=== PATIENT | female | born 1985 | race Caucasian/White ===

== ENCOUNTER 2016-12-20 20:32 | Emergency (ER) | payer OTHER ==
[2016-12-20 20:44] VITALS: BP 103/64; BMI 29.4
--- NOTE | 2016-12-20 20:53 | DR.GENAD ---
HPI - PCP Primary Care Physician: angeli - HPI Comment HPI Comment: HISTORY BELOW. - Complaint/Symptoms Chief Complaint Doctors Comments: DYSURIA AND NAUSEA FOR FEW DAYS. TOOK LEFT OVER CIPRO. DYSURAI BACK TODAY, NO FEVER. Chief Complaint:: pain on urination, weak nauseated Self Treatment fo Chief Complaint: pt took tylenol approx one hour ago - Nurses notes reviewed Nurses Notes Review: Yes - Source History Provided: Patient - Mode of Arrival Mode of Arrival: Ambulatory - Timing Onset of Chief Complaint: 12/13/16 PMH - PMH Past Medical History: No Past Medical History: Anxiety Past Surgical History: Yes Surgical History: , Ortho Surgery - Family History History of Family Medical Conditions: Yes Family Medical History: Hypertension - Social History Does patient currently use any type of tobacco product: No Have you used tobacco products in the last 12 months: No Type of Tobacco Use: Cigarettes Does any household member use tobacco: No Alcohol Use: Occasionally Do you use any recreational Drugs:: No Lives With: Family Lives Where: Home - infectious screening In the last 2 months have you had wt loss of >10#?: NO Have you had fever, night sweats or hemotysis?: No Have you traveled outside the country in the last 6 months?: No Isolation: Standard ROS - Review of Systems Constitutional: No Symptoms Reported Eyes: No Symptoms Reported ENTM: No Symptoms Reported Respiratoy: No Symptoms Reported Cardiovascular: No Symptoms Reported Gastrointestinal/Abdominal: Nausea Genitourinary: Dysuria Neurological: No Symptoms Reported Musculoskeletal: No Symptoms Reported Integumentary: No Symptoms Reported Hematologic/Lymphatic: No Symptoms Reported Endocrine: No Symptoms Reported All Other Systems: Reviewed and Negative PE - Vital Signs Vitals: Temperature 98.0 F Pulse Rate 71 Respiratory Rate 18 Blood Pressure [Left Arm] 110/67 Blood Pressure 103/64 O2 Sat by Pulse Oximetry 98 - General Limitations: No Limitations General Appearance: Alert - Head Head Exam: Normal Inspection - Eyes Eye exam: Normal Appearance - ENT ENT Exam: Normal External Ear Exam External Ear Exam: Normal External Inspection TM/Canal Exam: Bilateral Normal Nose Exam: Normal Nose Exam Mouth Exam: Normal Inspection Throat Exam: Normal Inspection - Neck Neck Exam: Normal Inspection - Chest Chest Inspection: Symmetric Chest Wall Rise - Respiratory Respiratory Exam: Prolonged Expiratory Phase Respiratory Exam: Bilateral Clear to Auscultation - Cardiovascular Cardiovascular Exam: Regular Rate, Normal Rhythm, Normal Heart Sounds - Abdominal Exam Abdominal Exam: Normal Bowel Sounds, Soft. negative: Tenderness - Extremities Extremities Exam: Normal Inspection - Back Back Exam: negative: (R) CVA Tenderness, (L) CVA Tenderness - Neurologic Neurological Exam: Alert, Oriented X3 - Psychiatric Psychiatric Exam: Normal Affect, Normal Mood - Skin Skin Exam: Normal Color MDM - Differential Diagnosis Differential Diagnosis: UTI, KIDNEY STONE, PYELONEPHRITIS Course - Treatment Treatment: SEE ORDERS. - Education/Counseling Education/Counseling: Patient, Education Educated On: Diagnosis, Needs for Follow Up ROR - Labs Reviewed Laboratory Results Reviewed?: Yes Result Diagrams: 12/20/16 21:15 12/20/16 21:15 Laboratory: WBC 10.6 X10^3/uL (3.6-10.0) H 12/20/16 21:15 RBC 4.72 X10^6/uL (3.5-5.4) 12/20/16 21:15 Hgb 13.1 g/dL (12.0-16.0) 12/20/16 21:15 Hct 39.1 % (36.0-47.0) 12/20/16 21:15 MCV 82.9 fL (80.0-100.0) 12/20/16 21:15 MCH 27.7 pg (27.0-34.0) 12/20/16 21:15 MCHC 33.5 g/dL (33.0-35.0) 12/20/16 21:15 RDW 14.0 % (11.6-16.5) 12/20/16 21:15 Plt Count 274 X10^3/uL (150.0-450.0) 12/20/16 21:15 MPV 10.3 fL (7.4-11.0) 12/20/16 21:15 Neut % 55.2 % (42.0-75.0) 12/20/16 21:15 Lymph % 34.0 % (21.0-51.0) 12/20/16 21:15 [place] % 7.7 % (0.0-13.0) 12/20/16 21:15 Eos % 1.9 % (0.9-2.9) 12/20/16 21:15 Baso % 1.2 % (0.2-1.0) H 12/20/16 21:15 Neut # 5.9 x10^3/uL (2.2-4.8) H 12/20/16 21:15 Lymph # 3.6 X10^3/uL (1.3-2.9) H 12/20/16 21:15 [place] # 0.8 x10^3/uL (0.3-0.8) 12/20/16 21:15 Eos # 0.2 x10^3/uL (0.0-0.2) 12/20/16 21:15 Baso # 0.1 X10^3/uL (0.0-0.1) 12/20/16 21:15 Absolute Nucleated RBC 0.0 /100WBC 12/20/16 21:15 Sodium 141 mmol/L (136-145) 12/20/16 21:15 Corrected Sodium TNP 12/20/16 21:15 Potassium 4.1 mmol/L (3.5-5.1) 12/20/16 21:15 Chloride 107 mmol/L (98-107) 12/20/16 21:15 Carbon Dioxide 25.4 mmol/L (21-32) 12/20/16 21:15 BUN 16 mg/dL (7-18) 12/20/16 21:15 Creatinine 1.11 mg/dL (0.55-1.02) H 12/20/16 21:15 Est GFR (MDRD) Af Amer > 60 (>60) 12/20/16 21:15 Est GFR (MDRD) Non-Af > 60 (>60) 12/20/16 21:15 Glucose 83 mg/dL (65-99) 12/20/16 21:15 Calcium 9.4 mg/dL (8.5-10.1) 12/20/16 21:15 Corrected Calcium TNP 12/20/16 21:15 Total Bilirubin 0.30 mg/dL (0.2-1.0) 12/20/16 21:15 AST 14 Units/L (15-37) L 12/20/16 21:15 ALT 22 Units/L (12-78) 12/20/16 21:15 Alkaline Phosphatase 55 Units/L (46-116) 12/20/16 21:15 Total Protein 7.1 g/dL (6.4-8.2) 12/20/16 21:15 Albumin 3.7 g/dL (3.4-5.0) 12/20/16 21:15 Globulin 3.4 g/dL (2.5-4.5) 12/20/16 21:15 Albumin/Globulin Ratio 1.1 Ratio (1.1-2.1) 12/20/16 21:15 HCG, Qual Negative <10 mIU/mL 12/20/16 21:15 Specimen Type Clean catch urine 12/20/16 21:39 Urine Color Yellow (YELLOW) 12/20/16 21:39 Urine Appearance Clear (CLEAR) 12/20/16 21:39 Urine pH 5.0 (5.0 - 8.0) 12/20/16 21:39 Ur Specific [place] 1.030 (1.000-1.030) 12/20/16 21:39 Urine Protein 1+ (NEGATIVE) 12/20/16 21:39 Urine Glucose (UA) Negative (NEGATIVE) 12/20/16 21:39 Urine Ketones Negative (NEGATIVE) 12/20/16 21:39 Urine Occult Blood 1+ (NEGATIVE) 12/20/16 21:39 Urine Nitrite Negative (NEGATIVE) 12/20/16 21:39 Urine Bilirubin Negative (NEGATIVE) 12/20/16 21:39 Urine Urobilinogen Normal (NORMAL) 12/20/16 21:39 Ur Leukocyte Esterase Negative (NEGATIVE) 12/20/16 21:39 Urine RBC 0-3 /HPF (NEGATIVE) 12/20/16 21:39 Urine WBC 2-4 /HPF (NEGATIVE) 12/20/16 21:39 Ur Squamous Epith Cells Few /HPF (NEGATIVE) 12/20/16 21:39 Urine Bacteria 1+ /HPF (NEGATIVE) 12/20/16 21:39 Urine Mucus Few /HPF (NEGATIVE) 12/20/16 21:39 Ur Culture Indicated? No/not indicated 12/20/16 21:39 - Diagnosis Discharge Problem: UTI (urinary tract infection) - Discharge Plan Disposition: 01 HOME, SELF-CARE Condition: Stable Prescriptions: Phenazopyridine HCl [Pyridium] 200 mg PO TID PRN #12 tab PRN Reason: PAINFUL URINATION Sulfamethoxazole-Trimethoprim [BACTRIM DS TAB 800/160 MG *] 1 tab PO BID #20 tab - Follow ups/Referrals Follow ups/Referrals: LAKIA PRIDE [Primary Care Provider] - 3 days - Instructions Instructions: Urinary Tract Infection, Adult, [id number] Additional Instructions: RETURN TO ED IF WORSE.
[2016-12-20 21:27] LABS: BASOPHILS # (AUTO) 0.1 X10^3/uL (0.0-0.1); BASOPHILS % (AUTO) 1.2 % (0.2-1.0); EOSINOPHILS # (AUTO) 0.2 x10^3/uL (0.0-0.2); EOSINOPHILS % (AUTO) 1.9 % (0.9-2.9); HEMATOCRIT 39.1 % (36.0-47.0); HEMOGLOBIN 13.1 g/dL (12.0-16.0); LYMPHOCYTES # (AUTO) 3.6 X10^3/uL (1.3-2.9); MEAN CORPUSCULAR HEMOGLOBIN 27.7 pg (27.0-34.0); MEAN CORPUSCULAR HGB CONC 33.5 g/dL (33.0-35.0); MEAN CORPUSCULAR VOLUME 82.9 fL (80.0-100.0); MEAN PLATELET VOLUME 10.3 fL (7.4-11.0); MONOCYTES # (AUTO) 0.8 x10^3/uL (0.3-0.8); MONOCYTES % (AUTO) 7.7 % (0.0-13.0); NEUTROPHILS # (AUTO) 5.9 x10^3/uL (2.2-4.8); NEUTROPHILS % (AUTO) 55.2 % (42.0-75.0); PLATELET COUNT 274 X10^3/uL (150.0-450.0); RED BLOOD COUNT 4.72 X10^6/uL (3.5-5.4); WHITE BLOOD COUNT 10.6 X10^3/uL (3.6-10.0)
[2016-12-20 21:39] LABS: ALANINE AMINOTRANSFERASE 22 Units/L (12-78); ALBUMIN 3.7 g/dL (3.4-5.0); ALKALINE PHOSPHATASE 55 Units/L (46-116); ASPARTATE AMINO TRANSFERASE 14 Units/L (15-37); BLOOD UREA NITROGEN 16 mg/dL (7-18); CALCIUM 9.4 mg/dL (8.5-10.1); CARBON DIOXIDE 25.4 mmol/L (21-32); CHLORIDE 107 mmol/L (98-107); CREATININE 1.11 mg/dL (0.55-1.02); SODIUM 141 mmol/L (136-145); TOTAL PROTEIN 7.1 g/dL (6.4-8.2); eGFR BLACK RACES > 60 (>60); eGFR NON BLACK RACES > 60 (>60)
[2016-12-20 21:55] LABS: BILIRUBIN,URINE NEGATIVE (NEGATIVE); BLOOD/HEMOGLOBIN,URINE 1+ (NEGATIVE); GLUCOSE, URINE NEGATIVE (NEGATIVE); KETONES,URINE NEGATIVE (NEGATIVE); LEUKOCYTE ESTERASE ,URINE NEGATIVE (NEGATIVE); NITRITES,URINE NEGATIVE (NEGATIVE); PROTEIN,URINE 1+ (NEGATIVE); UROBILINOGEN,URINE NORMAL (NORMAL)
[2016-12-20 22:10] LABS: APPEARANCE,URINE CLEAR (CLEAR); BACTERIA,URINE 1+ /HPF (NEGATIVE); COLOR,URINE YELLOW (YELLOW); MUCUS,URINE FEW /HPF (NEGATIVE); RBC,URINE 0-3 /HPF (NEGATIVE); SQUAMOUS EPITHELIAL CELL,UR FEW /HPF (NEGATIVE)
[2016-12-20 22:34] LABS: SERUM PREGNANCY TEST, QUAL NEGATIVE <10 mIU/mL
[2016-12-20] MEDS ORDERED: BACTRIM DS TAB PO ONE ×2 (22:34→22:38)
[2016-12-20] MEDS ORDERED: PYRIDIUM PO ONE ×2 (22:35→22:38)
== END 2016-12-20 22:44 | disposition home or self-care (01) ==
LOC: ER 20:32
DX: N39.0 Urinary tract infection, site not specified (principal)
CPT/HCPCS: 36415; 80053; 81001; 84703; 85025; 99282

== ENCOUNTER 2017-02-14 21:42 | Emergency (ER) | payer OTHER ==
--- NOTE | 2017-02-14 22:02 | DR.GENAD ---
HPI - PCP Primary Care Physician: angeli - Complaint/Symptoms Chief Complaint Doctors Comments: Patient admits to acute epigastric pain associated with nausea onset one hour ago. She denies diarrhea or fever. The pain is sharp, crampy 7/10 in severity not relieved by antacid. Chief Complaint:: abdominal pain - Source History Provided: Patient - Mode of Arrival Mode of Arrival: Ambulatory - Timing Onset of Chief Complaint: 02/14/17 PMH - PMH Past Medical History: Yes Past Medical History: Anxiety Past Surgical History: Yes Surgical History: , Ortho Surgery - Family History History of Family Medical Conditions: Yes Family Medical History: Hypertension - Social History Does patient currently use any type of tobacco product: No Have you used tobacco products in the last 12 months: No Type of Tobacco Use: Cigarettes Does any household member use tobacco: No Alcohol Use: Occasionally Do you use any recreational Drugs:: No Lives With: Family Lives Where: Home - infectious screening In the last 2 months have you had wt loss of >10#?: NO Have you had fever, night sweats or hemotysis?: No Have you traveled outside the country in the last 6 months?: No Isolation: Standard ROS - Review of Systems Eyes: No Symptoms Reported ENTM: No Symptoms Reported Respiratoy: No Symptoms Reported Cardiovascular: No Symptoms Reported Gastrointestinal/Abdominal: Abdominal Pain Genitourinary: No Symptoms Reported Neurological: No Symptoms Reported Musculoskeletal: No Symptoms Reported Integumentary: No Symptoms Reported Hematologic/Lymphatic: No Symptoms Reported Endocrine: No Symptoms Reported Psychiatric: No Symptoms Reported All Other Systems: Reviewed and Negative PE - Vital Signs Vitals: Temperature 97.3 F Pulse Rate 108 Respiratory Rate 16 Blood Pressure [Left Arm] 110/67 Blood Pressure 130/79 O2 Sat by Pulse Oximetry 97 - General Limitations: No Limitations General Appearance: Alert, In No Apparent Distress - Head Head Exam: Normal Inspection, Atraumatic - Eyes Eye exam: Normal Appearance, PERRL, EOMI - ENT ENT Exam: Normal Exam External Ear Exam: Normal External Inspection TM/Canal Exam: Bilateral Normal Nose Exam: Normal Nose Exam, Sinus Tenderness Mouth Exam: Normal Inspection Throat Exam: Normal Inspection - Neck Neck Exam: Normal Inspection, Full ROM - Chest Chest Inspection: Normal Inspection - Respiratory Respiratory Exam: Normal Lung Sounds Bilat Respiratory Exam: Bilateral Clear to Auscultation - Cardiovascular Cardiovascular Exam: Regular Rate, Normal Rhythm - Abdominal Exam Abdominal Exam: Normal Inspection, Normal Bowel Sounds Abdominal Tenderness: Epigastrium, Suprapubic - Extremities Extremities Exam: Normal Inspection, Full ROM - Back Back Exam: Normal Inspection, Full ROM - Neurologic Neurological Exam: Alert, Oriented X3, CN II-XII Intact - Psychiatric Psychiatric Exam: Normal Affect, Normal Mood - Skin Skin Exam: Warm, Dry Course - Education/Counseling Education/Counseling: Patient Educated On: Treatment, Diagnosis, Prognosis ROR - Labs Reviewed Laboratory Results Reviewed?: Yes (UA:2+kentone,2+leukocytes; 10-12WBC) Result Diagrams: 02/14/17 22:15 02/14/17 22:15 Laboratory: WBC 12.2 X10^3/uL (3.6-10.0) H 02/14/17 22:15 RBC 4.50 X10^6/uL (3.5-5.4) 02/14/17 22:15 Hgb 12.7 g/dL (12.0-16.0) 02/14/17 22:15 Hct 37.2 % (36.0-47.0) 02/14/17 22:15 MCV 82.6 fL (80.0-100.0) 02/14/17 22:15 MCH 28.1 pg (27.0-34.0) 02/14/17 22:15 MCHC 34.0 g/dL (33.0-35.0) 02/14/17 22:15 RDW 14.2 % (11.6-16.5) 02/14/17 22:15 Plt Count 244 X10^3/uL (150.0-450.0) 02/14/17 22:15 MPV 10.1 fL (7.4-11.0) 02/14/17 22:15 Neut % 50.1 % (42.0-75.0) 02/14/17 22:15 Lymph % 35.4 % (21.0-51.0) 02/14/17 22:15 [place] % 11.5 % (0.0-13.0) 02/14/17 22:15 Eos % 1.9 % (0.9-2.9) 02/14/17 22:15 Baso % 1.1 % (0.2-1.0) H 02/14/17 22:15 Neut # 6.1 x10^3/uL (2.2-4.8) H 02/14/17 22:15 Lymph # 4.3 X10^3/uL (1.3-2.9) H 02/14/17 22:15 [place] # 1.4 x10^3/uL (0.3-0.8) H 02/14/17 22:15 Eos # 0.2 x10^3/uL (0.0-0.2) 02/14/17 22:15 Baso # 0.1 X10^3/uL (0.0-0.1) 02/14/17 22:15 Absolute Nucleated RBC 0.0 /100WBC 02/14/17 22:15 Sodium 140 mmol/L (136-145) 02/14/17 22:15 Corrected Sodium TNP 02/14/17 22:15 Potassium 3.5 mmol/L (3.5-5.1) 02/14/17 22:15 Chloride 104 mmol/L (98-107) 02/14/17 22:15 Carbon Dioxide 25.0 mmol/L (21-32) 02/14/17 22:15 BUN 19 mg/dL (7-18) H 02/14/17 22:15 Creatinine 1.13 mg/dL (0.55-1.02) H 02/14/17 22:15 Est GFR (MDRD) Af Amer > 60 (>60) 02/14/17 22:15 Est GFR (MDRD) Non-Af 59 (>60) 02/14/17 22:15 Glucose 101 mg/dL (65-99) H 02/14/17 22:15 Calcium 9.6 mg/dL (8.5-10.1) 02/14/17 22:15 C-Reactive Protein 27.20 mg/L (0-3.0) H 02/14/17 22:15 Specimen Type Clean catch urine 02/14/17 22:20 Urine Color Yellow (YELLOW) 02/14/17 22:20 Urine Appearance Slightly hazy (CLEAR) 02/14/17 22:20 Urine pH 5.0 (5.0 - 8.0) 02/14/17 22:20 Ur Specific [place] 1.025 (1.000-1.030) 02/14/17 22:20 Urine Protein 1+ (NEGATIVE) 02/14/17 22:20 Urine Glucose (UA) Negative (NEGATIVE) 02/14/17 22:20 Urine Ketones 2+ (NEGATIVE) 02/14/17 22:20 Urine Occult Blood 1+ (NEGATIVE) 02/14/17 22:20 Urine Nitrite Negative (NEGATIVE) 02/14/17 22:20 Urine Bilirubin Negative (NEGATIVE) 02/14/17 22:20 Urine Urobilinogen Normal (NORMAL) 02/14/17 22:20 Ur Leukocyte Esterase 2+ (NEGATIVE) 02/14/17 22:20 Urine RBC 3-5 /HPF (NEGATIVE) 02/14/17 22:20 Urine WBC 10-12 /HPF (NEGATIVE) 02/14/17 22:20 Ur Squamous Epith Cells Few /HPF (NEGATIVE) 02/14/17 22:20 Urine Bacteria 1+ /HPF (NEGATIVE) 02/14/17 22:20 Ur Culture Indicated? Yes/culture set up 02/14/17 22:20 H. pylori IgG Antibody Negative (NEGATIVE) 02/14/17 22:15 - XRAY XRAY Interpreted by: Radiologist (Acute abdomian series: The heart size is normal, No focal consolidation, effusion or pneumothorax is identified. Osseous thorax is unremarkable. Moderate stool is present throughout the right colon.The bowel gas pattern is otherwise nonobstructive. No free air or pneumotosis is identified. no pathologic calcifications are seen. Impression: Chest: no acute process, Findings suggestive for constipation. Otherwise, no acute abdominal abnormality.) - Diagnosis Discharge Problem: UTI (urinary tract infection) Qualifiers: Urinary tract infection type: acute cystitis Hematuria presence: with hematuria Qualified Code(s): N30.01 - Acute cystitis with hematuria Constipation Qualifiers: Constipation type: slow transit constipation Qualified Code(s): K59.01 - Slow transit constipation - Discharge Plan Condition: Stable - Follow ups/Referrals Follow ups/Referrals: LAKIA PRIDE [Primary Care Provider] - 3 days - Instructions
[2017-02-14 22:19] LABS: BASOPHILS # (AUTO) 0.1 X10^3/uL (0.0-0.1); BASOPHILS % (AUTO) 1.1 % (0.2-1.0); EOSINOPHILS # (AUTO) 0.2 x10^3/uL (0.0-0.2); EOSINOPHILS % (AUTO) 1.9 % (0.9-2.9); HEMATOCRIT 37.2 % (36.0-47.0); HEMOGLOBIN 12.7 g/dL (12.0-16.0); LYMPHOCYTES # (AUTO) 4.3 X10^3/uL (1.3-2.9); LYMPHOCYTES % (AUTO) 35.4 % (21.0-51.0); MEAN CORPUSCULAR HEMOGLOBIN 28.1 pg (27.0-34.0); MEAN CORPUSCULAR VOLUME 82.6 fL (80.0-100.0); MEAN PLATELET VOLUME 10.1 fL (7.4-11.0); MONOCYTES # (AUTO) 1.4 x10^3/uL (0.3-0.8); MONOCYTES % (AUTO) 11.5 % (0.0-13.0); NEUTROPHILS # (AUTO) 6.1 x10^3/uL (2.2-4.8); NEUTROPHILS % (AUTO) 50.1 % (42.0-75.0); PLATELET COUNT 244 X10^3/uL (150.0-450.0); RED CELL DISTRIBUTION WIDTH 14.2 % (11.6-16.5); WHITE BLOOD COUNT 12.2 X10^3/uL (3.6-10.0)
[2017-02-14 22:29] LABS: BLOOD UREA NITROGEN 19 mg/dL (7-18); CALCIUM 9.6 mg/dL (8.5-10.1); CHLORIDE 104 mmol/L (98-107); CREATININE 1.13 mg/dL (0.55-1.02); SODIUM 140 mmol/L (136-145); eGFR BLACK RACES > 60 (>60); eGFR NON BLACK RACES 59 (>60)
[2017-02-14 22:30] LABS: BILIRUBIN,URINE NEGATIVE (NEGATIVE); BLOOD/HEMOGLOBIN,URINE 1+ (NEGATIVE); GLUCOSE, URINE NEGATIVE (NEGATIVE); KETONES,URINE 2+ (NEGATIVE); LEUKOCYTE ESTERASE ,URINE 2+ (NEGATIVE); NITRITES,URINE NEGATIVE (NEGATIVE); PROTEIN,URINE 1+ (NEGATIVE); UROBILINOGEN,URINE NORMAL (NORMAL)
[2017-02-14 22:35] LABS: APPEARANCE,URINE SLIGHTLY HAZY (CLEAR); BACTERIA,URINE 1+ /HPF (NEGATIVE); COLOR,URINE YELLOW (YELLOW); SQUAMOUS EPITHELIAL CELL,UR FEW /HPF (NEGATIVE)
[2017-02-14] MEDS ORDERED: CIPRO TAB 500 MG PO ONE ×2 (23:33→23:36)
--- NOTE | 2017-02-15 00:17 | RAD ---
Acute abdominal series, three views Indication: Abdominal pain Comparison: To 10/08/2014 Findings: The heart size is normal. No focal consolidation, effusion or pneumothorax is identified. O sseous thorax is unremarkable. Moderate stool is present throughout the right colon. The bowel gas pattern is otherwise nonobstructi ve. No free air or pneumatosis is identified. No pathologic calcifications are seen. Impression: No acute chest process. Findings suggestive for constipation. Otherwise, no acute abdominal abnormality. Reported By:
[2017-02-15] MEDS ORDERED: CITROMA PO ONE (00:35)
[2017-02-15] MEDS ORDERED: CITROMA ONE (00:37)
[2017-02-15] MEDS ORDERED: ROBITUSSIN DM PO ONE (00:45)
[2017-02-15] MEDS ORDERED: ROBITUSSIN DM ONE (00:45)
[2017-02-15 00:51] VITALS: BP 122/72
== END 2017-02-15 00:52 | disposition home or self-care (01) ==
LOC: ER 21:42
DX: N30.01 Acute cystitis with hematuria (principal); K59.01 Slow transit constipation
CPT/HCPCS: 36415; 74022; 80048; 81001; 85025; 86140; 86677; 87086; 99282; 99283

== ENCOUNTER 2017-03-10 21:13 | Emergency (ER) | payer OTHER ==
[2017-03-10 21:33] VITALS: BMI 33.7
[2017-03-10] MEDS ORDERED: DECADRON INJ IM ONE (22:03)
[2017-03-10] MEDS ORDERED: TORADOL 30 MG VIAL IM ONE (22:03)
[2017-03-10] MEDS ORDERED: BICILLIN L-A IM ONE ×2 (22:03→22:04)
[2017-03-10] MEDS ORDERED: DECADRON INJ ONE (22:04)
[2017-03-10] MEDS ORDERED: TORADOL 60 MG VIAL ONE (22:04)
--- NOTE | 2017-03-10 22:06 | DR.GENAD ---
HPI - PCP Primary Care Physician: BIGG - HPI Comment HPI Comment: PATIENT TOOK CIPRO BUT STILL HAVE SYMTOMS. HAVE COUGH. NO FEVER. GETTING WORSE. PAIN SEVERE TODAY. NOT FIDEL TO SWALLOW FOOD. CAN SWALLOW LIQUID. TODAY, VOICE CHANGING. - Complaint/Symptoms Chief Complaint Doctors Comments: SORE THROAT, DYSPHAGIA AND SWOLLEN GLANDS ON AND OFF TIMES ONE MONTH. Chief Complaint:: SORE THROAT FOR OVER A MONTH CAN'T SWALLOW IT. PT STATES" IT COMES AND GOES FOR THE LAST MONTH JUST GOTTEN WORSE TONIGHT" - Nurses notes reviewed Nurses Notes Review: Yes - Source History Provided: Patient - Mode of Arrival Mode of Arrival: Ambulatory - Timing Onset of Chief Complaint: 01/27/17 Came on: Suddenly - Duration Duration: Intermittent Duration: Days - Severity Severity: Moderate PMH - PMH Past Medical History: Yes Past Medical History: Anxiety Past Surgical History: Yes Surgical History: , Ortho Surgery - Family History History of Family Medical Conditions: Yes Family Medical History: Hypertension - Social History Type of Tobacco Use: Cigarettes Does any household member use tobacco: No Do you use any recreational Drugs:: No Lives With: Family Lives Where: Home - infectious screening In the last 2 months have you had wt loss of >10#?: NO Have you had fever, night sweats or hemotysis?: No Have you traveled outside the country in the last 6 months?: No Isolation: Standard ROS - Review of Systems Constitutional: Weakness, Fatigue. negative: Chills, Fever Eyes: negative: Eye Pain, Discharge ENTM: negative: Ear Pain, Nose Discharge, Nose Congestion, Throat Pain Respiratoy: Non-Productive Cough Cardiovascular: No Symptoms Reported Gastrointestinal/Abdominal: No Symptoms Reported Genitourinary: No Symptoms Reported Neurological: Headache, Weakness, Dizziness Musculoskeletal: Muscle Pain Integumentary: No Symptoms Reported Hematologic/Lymphatic: No Symptoms Reported Endocrine: No Symptoms Reported All Other Systems: Reviewed and Negative PE - Vital Signs Vitals: Temperature 98.1 F Pulse Rate 74 Respiratory Rate 18 Blood Pressure [Left Arm] 122/72 Blood Pressure 117/57 O2 Sat by Pulse Oximetry 97 - General Limitations: No Limitations General Appearance: Alert - Head Head Exam: Normal Inspection - Eyes Eye exam: Normal Appearance - ENT ENT Exam: Normal External Ear Exam External Ear Exam: Normal External Inspection TM/Canal Exam: Bilateral Normal Nose Exam: Normal Nose Exam Mouth Exam: negative: Drooling, Trismus Throat Exam: Tonsillar Erythema, Tonsillomegaly, Other (VOICE SLIGHTLY CHANGE.) . negative: Tonsillar Exudate, R Peritonsillar Mass, L Peritonsillar Mass - Neck Neck Exam: Trachea Midline, Lymphadenopathy. negative: Tenderness, Meningismus - Chest Chest Inspection: Symmetric Chest Wall Rise - Respiratory Respiratory Exam: Normal Lung Sounds Bilat Respiratory Exam: Bilateral Clear to Auscultation - Cardiovascular Cardiovascular Exam: Regular Rate, Normal Rhythm, Normal Heart Sounds - Abdominal Exam Abdominal Exam: Normal Bowel Sounds, Soft. negative: Tenderness - Extremities Extremities Exam: Normal Inspection - Back Back Exam: Normal Inspection - Neurologic Neurological Exam: Alert, Oriented X3 - Psychiatric Psychiatric Exam: Anxious - Skin Skin Exam: Normal Color MDM - Differential Diagnosis Differential Diagnosis: ACUTE TONSILLITIS, SORE THROAT Course - Treatment Treatment: SEE ORDERS. IM TORADOL, BICILLIN, AND DECADRON IN ED. - Education/Counseling Education/Counseling: Patient, Education Educated On: Treatment, Diagnosis, Needs for Follow Up ROR - Labs Reviewed Laboratory Results Reviewed?: Yes Laboratory: Streptococcus Screen Positive (NEGATIVE) A 03/10/17 21:30 - Diagnosis Discharge Problem: Strep pharyngitis Dysphagia Qualifiers: Dysphagia type: oral phase Qualified Code(s): R13.11 - Dysphagia, oral phase - Discharge Plan Condition: Stable Prescriptions: Acetaminophen with Codeine [Tylenol/Codeine #3 300-30 mg] 1 tab PO Q6H PRN #15 tab PRN Reason: Pain Azithromycin [ZITHROMAX Tab 250 mg *] 1 dose PO DAILY #6 tab Ibuprofen [MOTRIN TAB 600 MG *] 600 mg PO TID PRN #20 tab PRN Reason: Pain/Inflammation - Follow ups/Referrals Follow ups/Referrals: LAKIA PRIDE [Primary Care Provider] - 3 days - Instructions Instructions: Strep Throat, [id number] Additional Instructions: RETURN TO ED IF WORSE.
[2017-03-10 22:43] VITALS: BP 118/52
== END 2017-03-10 22:40 | disposition home or self-care (01) ==
LOC: ER 21:26
DX: J02.0 Streptococcal pharyngitis (principal); R13.11 Dysphagia, oral phase
CPT/HCPCS: 87880; 96372; 99282; J0570; J1100; J1885